=== PATIENT | female | born 1990 | race Two or more races ===

== ENCOUNTER 2021-03-15 16:01 | Emergency (ER) | payer BC, OTHER ==
[~2021-03-15] VITALS: Ht 157.5 cm; Wt 86.2 kg
[2021-03-15] MEDS ORDERED: ACETAMINOPHEN 325 MG TAB PO ONE (19:30)
[2021-03-15] MEDS ORDERED: KETOROLAC TROMETH 60MG/2ML VIAL IM ONE (19:30)
[2021-03-15] MEDS ORDERED: ALPRAZolam 0.25 MG TAB PO ONE (19:30)
[2021-03-15 20:50] VITALS: BP 120/74
== END 2021-03-15 20:58 | disposition home or self-care (01) ==
LOC: ER 16:01
DX: M54.2 Cervicalgia (principal); M54.6 Pain in thoracic spine; R07.89 Other chest pain; Z98.51 Tubal ligation status; V49.59XA Passenger injured in collision with other motor vehicles in traffic accident, initial encounter; Y93.89 Activity, other specified; Y92.410 Unspecified street and highway as the place of occurrence of the external cause; Y99.8 Other external cause status
CPT/HCPCS: 71045; 72052; 72070; 96372; 99284; J1885